=== PATIENT | male | born 1985 | race Caucasian/White ===

== ENCOUNTER 2019-05-24 12:35 | Emergency (ER) | payer BC, SELFPAY ==
--- NOTE | ~2019-05-24 | XR_ITS ---
EXAMINATION: XR chest 1V portable DATE: 05/24/2019 12:58 INDICATION: Acute midsternal chest pain radiating to left shoulder. TECHNIQUE: A single frontal view of the chest was obtained. COMPARISON: CT abdomen 11/23/2017 FINDINGS: The chest demonstrates clear lungs without pneumonia, pleural effusion, or pneumothorax. Th e heart size is normal. IMPRESSION: 1. No acute cardiopulmonary disease. Reviewed, dictated and finalized at location A.
--- NOTE | 2019-05-24 12:36 | ECG_ITS ---
Measurements Intervals [place] Rate: 186 P: [place]: 0 QRS: 63 QRSD: 88 T: -53 QT: 237 QTc: 417 Interpretive Statements SUPRAVENTRICULAR TACHYCARDIA ST-T WAVE ABNORMALITY IN ANTEROLAT/INF LEADS- CONSIDER ISCHEMIA OR RATE RELATED ABNORMAL ECG Electronically Signed On 05-24-2019 13:16:21 CDT by Luis Carlos Lopez D.O.
[2019-05-24 12:40] VITALS: BP 113/90; PULSE 196; RESP 18; O2SAT 100
[2019-05-24] MEDS: SODIUM CHLORIDE 0.9% IV 1,000 ML 999 ML (12:40)
--- NOTE | 2019-05-24 12:41 | ED.ARRPALP ---
HPI - Arrhythmia/Palpitations General Chief Complaint: Arrhythmia/Palpitations Stated Complaint: fast heartbeat Time Seen by Provider: 05/24/19 12:39 Source: patient and RN notes reviewed Mode of arrival: ambulatory Limitations: no limitations History of Present Illness HPI narrative: Pt is a 33 y/o male who presents to the ED with c/o heart palpitations starting roughly 30 minutes ago. He notes that he has a Hx of similar episodes, stating that he has an episode roughly every several months. Pt notes that his heart began racing while he was cleaning out his garage 30 minutes ago. He currently reports chest tightness, but denies any fever, chills, or other symptoms. Pt states that this is the longest episode of palpitations he has ever had. He denies ever being diagnosed with SVT. complaint: heart racing Onset (ago): minute(s) (30) Duration: constant Associated symptoms: other (chest tightness) Related Data Home Medications Medication Instructions Recorded Confirmed No Home Medications 05/24/19 05/24/19 Allergies Allergy/AdvReac Type Severity Reaction Status Date / Time No Known Allergies Allergy Unknown Unverified 06/30/15 08:06 Review of Systems Review of Systems: All systems reviewed & are unremarkable except as noted in HPI and below Constitutional: Constitutional: Denies chills and Denies fever(s) Cardiovascular: Cardiovascular: Reports palpitations and Reports other (chest tightness) [facility] Past Medical History Medical History Asthma GI bleed Strep throat Surgical History Surgical History History of placement of ear tubes Family History Family History (Updated 02/10/17 @ 15:25 by DOCTOR UNKNOWN) Mother Family history of migraine headaches Social History Social History Smoking status: Never smoker Second hand tobacco smoke exposure: No Alcohol intake: current Exam Narrative: Exam Narrative: APPEARANCE: No acute distress, nontoxic, resting in bed EYES: EOMI HEENT: Normocephalic, atraumatic, OMM RESPIRATORY: No respiratory distress Clear to auscultation bilaterally with no rhonchi wheezing or rales. CARDIOVASCULAR: Tachycardic and regular m without murmurs rubs or gallops. ABDOMINAL: Soft, nontender, nondistended, no rebound or guarding MUSCULOSKELETAl: Moves all extremities. No clubbing, cyanosis or edema. NEURO: Awake and alert. Following commands, speech normal, no focal deficits SKIN:: Warm, dry. No rashes lesions or abrasions PSYCHIATRIC: Normal affect/mood, Course Course Emergency Course: Patient is remained in sinus rhythm since conversion with adenosine Discussed with patient results of workup and diagnosis. Discussed need for follow-up with primary care, proper use of medication, and reasons to return to the emergency department. Patient understands and agrees to current treatment plan Consultations Consultation #1: Discussed case with CONCRETE ANALYST to community manager, Joycelyn Alexandre. He needs to follow-up with his PCP. Date: 05/24/19 Time: 13:49 Consultation #2: Discussed case with pt's PCP, Dr. Max. Wants to put the pt on Cardizem CD 120 mg daily. Please plan for discharge and follow-up as an outpatient Date: 05/24/19 Time: 13:56 Vital Signs Vital signs: Vital Signs Pulse Rate 196 H 05/24/19 12:40 Respiratory Rate 18 05/24/19 12:40 Blood Pressure 113/90 05/24/19 12:40 Pulse Oximetry 100 05/24/19 12:40 Pulse Rate 196 H 05/24/19 12:40 Respiratory Rate 18 05/24/19 12:40 Blood Pressure 113/90 05/24/19 12:40 Pulse Oximetry 100 05/24/19 12:40 Procedures Other Procedure Procedure 1: Other Procedure: Chemical cardioversion: Patient was placed on software consultant IV and right AC crash cart present in room. The patient was given 6 mg of adenosine with conversion from SVT into sinus rhythm. Patient flynn
[2019-05-24] MEDS: ADENOSINE IV SOLN 6 MG/2 ML VIAL (12:44)
--- NOTE | 2019-05-24 12:46 | ECG_ITS ---
Measurements Intervals [place] Rate: 97 P: 66 HI: 159 QRS: 43 QRSD: 88 T: 44 QT: 315 QTc: 402 Interpretive Statements SINUS RHYTHM BORDERLINE ST ABNORMALITY- ANTEROLAT/INF LEADS BASELINE WANDER- III BORDERLINE ECG Electronically Signed On 05-24-2019 13:16:59 CDT by Luis Carlos PERDOMO
[2019-05-24 13:02] LABS: Basophils Absolute Auto 0.1 K/mm3 (0.0-0.1); Basophils Percent Auto 0.8 % (0.2-1.2); Eosinophils Absolute Auto 0.4 K/mm3 (0-0.3); Eosinophils Percent Auto 4.8 % (0-4.4); Hemoglobin 16.6 g/dL (14.0-18.0); Immature Granulocyte Absolute 0.03 K/mm3 (0.00-0.031); Immature Granulocyte Percent A 0.4 % (0-0.5); Lymphocytes Absolute Auto 3.59 K/mm3 (0.9-3.2); Mean Corpuscular HGB Conc 35.3 g/dl (32-36); Mean Corpuscular Hemoglobin 31.7 pg (26-34); Mean Corpuscular Volume 89.7 fl (80-100); Mean Platelet Volume 9.3 fl (7.4-10.4); Monocytes Absolute Auto 0.9 K/mm3 (0.1-0.6); Monocytes Percent Auto 9.9 % (2.6-8.5); Neutrophils Absolute Auto 3.6 K/mm3 (1.3-6.7); Neutrophils Percent Auto 42.1 % (45.5-73.1); Platelet Count Result 286 k/mm3 (150-375); Red Blood Count 5.24 M/mm3 (4.6-6.20); Red Cell Distribution Width 11.9 % (11.5-14.5); White Blood Count 8.6 K/mm3 (4.5-10.0)
[2019-05-24 13:14] LABS: INR 0.9; Prothrombin Time 12.2 Seconds (11.1-14.7)
[2019-05-24 13:15] LABS: Partial Thromboplastin Time 27.4 SECONDS (22.3-36.8)
[2019-05-24 13:18] LABS: Blood Urea Nitrogen 13 mg/dL (9-20); Calcium 9.6 mg/dL (8.4-10.2); Carbon Dioxide 27 mmol/L (22-30); Chloride 99 mmol/L (98-107); Estimated CRCL calculation 95 ml/min; Estimated Glomerular Filt Rate > 60; Glucose 129 mg/dL (75-110); Magnesium 1.7 mg/dL (1.6-2.3); Potassium 3.4 mmol/L (3.4-5.0); Sodium 137 mmol/L (137-145)
[2019-05-24 13:34] LABS: Troponin I < 0.012 ng/mL (0.000-0.034)
[2019-05-24 14:21] VITALS: BP 150/97; PULSE 85; RESP 13; O2SAT 100
== END 2019-05-24 14:45 | disposition home or self-care (01) ==
PROVIDERS: Emergency Provider Emergency Medicine; PCP Internal Medicine
DX: I47.1 Supraventricular tachycardia (principal); J45.909 Unspecified asthma, uncomplicated
CPT/HCPCS: 36415; 71045; 80048; 83735; 84484; 85025; 85610; 85730; 92960; 93005; 96361; 96374; 99284; A9270; J0153; J7030

== ENCOUNTER 2019-06-14 12:38 | Outpatient (CLI) | payer BC, SELFPAY ==
--- NOTE | 2019-06-14 | ECHO_ITS ---
Patient Info Name: Oswaldo Baron Age: 34 years : 1985 Gender: Male Ht: 68 in Wt: 148 lbs BSA: 1.80 m2 HR: 55 bpm BP: 139 / 86 mmHg Technical Quality: Good Exam Date: 06/14/2019 1:29 PM Exam Location: [facility] Exam Room: echo lab Patient Status: Outpatient Admit Date: 06/14/2019 Staff Ordering Physician: Luis Carlos Lopez DO Security Nurse: Debi Saha RDCS Attending Provider: Luis Carlos Lopez DO Referring Physician: John MENDEZ; Exam Type: CA echo doppler color flow Study Info Indications - svt Complete two-dimensional, color flow and Doppler transthoracic echocardiogram is performed. Summary 1. Left ventricular chamber dimension is normal. 2. Left ventricular systolic function is normal, estimated at 60-65%. 3. The left ventricular diastolic function is normal. 4. E/e' 6 is not elevated. 5. There is trace tricuspid valve regurgitation. 6. No pulmonary hypertension, estimated pulmonary arterial systolic pressure is 25 mmHg. 7. There is trace pulmonic regurgitation. Left Ventricle E/e' 6 is not elevated. Left ventricular chamber dimension is normal. Left ventricular systolic function is normal, estimated at 60-65%. The left ventricular diastolic function is normal. Right Ventricle Right ventricular chamber dimension is normal. Right ventricular systolic function is normal. Left Atria Left atrial chamber dimension is normal. Right Atria Right atrial chamber dimension is normal. Aortic Valve The aortic valve is trileaflet. There is no aortic valve stenosis. There is no aortic valve regurgitation. Pulmonic Valve There is trace pulmonic regurgitation. Mitral Valve There is no mitral valve stenosis. There is no mitral valve regurgitation. Tricuspid Valve There is trace tricuspid valve regurgitation. No pulmonary hypertension, estimated pulmonary arterial systolic pressure is 25 mmHg. Pericardium/Pleural There is no pericardial effusion. Inferior Vena Cava Normal inferior vena cava with >50% collapse upon inspiration consistent with normal right atrial pressure, 5 mmHg. Aorta The aortic root size at the sinus of Valsalva is normal. Left Ventricular Outflow Tract Name Value Normal LVOT 2D LVOT Diameter 2.0 cm LVOT Doppler LVOT Peak Gradient 5 mmHg LVOT Mean Gradient 3 mmHg LVOT VTI 21 cm LVOT VTI/AV VTI Ratio 0.9 LVOT Stroke Volume 68 ml LVOT CO 13.9 l/min LVOT CI 7.8 l/min/m2 Pulmonic Valve Name Value Normal PV Doppler PV Peak Gradient 3 mmHg PV Regurgitation Doppler P
== END 2019-06-14 12:39 | disposition home or self-care (01) ==
PROVIDERS: PCP Internal Medicine; Visit Provider Internal Medicine Cardiovascular Disease
DX: I47.1 Supraventricular tachycardia (principal)
CPT/HCPCS: 93306

== ENCOUNTER 2019-07-18 14:50 | Outpatient (CLI) | payer BC, SELFPAY ==
--- NOTE | ~2019-07-18 | XR_ITS ---
EXAMINATION: XR hand RT 2V EXAM DATE: 07/18/2019 15:06 INDICATION: Pain in right 3rd finger, no known recent injury. TECHNIQUE: Frontal and lateral projections of the right hand. There is no prior study for compariso n. FINDINGS: There is a sliver-like metallic foreign body in the tip of the right 2nd finger distal to the tuft, likely chronic. The 3rd finger is unremarkable. There are no bony erosions identified. The joint spaces are uniform. IMPRESSION: Tiny foreign body in tip of right index finger. Unremarkable 3rd digit. Reviewed, dictated and finalized at location A. IMPRESSION: Tiny foreign body in tip of right index finger. Unremarkable 3rd di git.
== END 2019-07-18 14:51 | disposition home or self-care (01) ==
LOC: ANHIMG 14:51
PROVIDERS: PCP Internal Medicine; Visit Provider Physician Assistant
DX: M79.644 Pain in right finger(s) (principal)
CPT/HCPCS: 73120

== ENCOUNTER 2020-12-28 08:23 | Emergency (ER) | payer BC, SELFPAY ==
[2020-12-28 08:32] VITALS: BP 124/91; PULSE 50; RESP 16; TEMP 36.1; O2SAT 100
--- NOTE | 2020-12-28 09:01 | ED.NECK ---
HPI - Neck Pain/Injury General Chief Complaint: Neck Pain/Injury Stated Complaint: Neck Pain Time Seen by Provider: 12/28/20 09:00 Source: patient and RN notes reviewed Mode of arrival: ambulatory Limitations: no limitations History of Present Illness HPI Narrative: Oswaldo is a 35-year-old male [facility] Patient states he woke up yesterday with his neck being tight. Patient states he has pain when he leans to the right left and actually left work yesterday over it. Patient states increased pain when he tries to move. Woke up this morning with the same pain on the left side with hurting when he moves it to the right. Patient has taken Advil at home. Patient has not used ice or heat ; patient states pain is a 7/10. MD complaint: neck pain Related Data Allergies Allergy/AdvReac Type Severity Reaction Status Date / Time No Known Allergies Allergy Unknown Verified 11/27/20 10:13 Review of Systems Review of Systems: CONSTITUTIONAL: Denies body aches, fever, chills, or sweats. EYES: Denies visual changes, redness, or discharge. ENT: Denies rhinorrhea, congestion, sore throat, or otalgia. CARDIOVASCULAR: Denies chest pain, palpitations, or edema. RESPIRATORY: Denies cough or dyspnea. GASTROINTESTINAL: Denies abdominal pain, nausea, vomiting, or diarrhea. GENITOURINARY: Denies dysuria or hematuria. SKIN: Denies rash, itching, or wounds. MUSCULOSKELETAL: Denies back pain, joint pain, or myalgia.+ left neck pain NEUROLOGIC: Denies headache, numbness, tingling, or weakness. PSYCH: Denies depression or anxiety. All systems reviewed & are unremarkable except as noted in HPI and below [facility] Past Medical History Medical History (Updated 12/28/20 @ 09:07 by KIRK Hcek) Asthma GI bleed Strep throat Surgical History Surgical History History of placement of ear tubes Family History Family History Mother Family history of migraine headaches Social History Social History Smoking status: Never smoker Second hand tobacco smoke exposure: No Alcohol intake: current Comments At time of signature, I have reviewed and agree with nursing past medical, surgical, social and family history unless otherwise noted. Please see nursing chart for further information. There is no relevant family history pertinent to the presenting complaint Exam Narrative: GENERAL: Well-appearing, well-nourished, and in no acute distress. HEAD: Normocephalic, atraumatic. EYES: EOMI. No redness or drainage. Conjunctivae normal. ENT: Mucous membranes pink and moist. Nares clear. No rhinorrhea. NECK: Normal AROM. Supple. CHEST: No respiratory distress. . MUSCULOSKELETAL: No bony tenderness; EXTREMITIES: Normal range of motion. No edema; Increased pain with movement to left, trapezius muscle tight and pain with palpation, SKIN: Warm, dry, no rash. Capillary refill normal. Normal skin turgor. NEURO: No focal deficits. Alert and oriented x3. Gait steady. PSYCH: Normal affect. No signs of depression or anxiety. Course Vital Signs Vital signs: Vital Signs Temperature 36.1 C L 12/28/20 08:32 Pulse Rate 50 L 12/28/20 08:32 Respiratory Rate 16 12/28/20 08:32 Blood Pressure 124/91 H 12/28/20 08:32 Pulse Oximetry 100 12/28/20 08:32 Temperature 36.1 C L 12/28/20 08:32 Pulse Rate 50 L 12/28/20 08:32 Respiratory Rate 16 12/28/20 08:32 Blood Pressure 124/91 H 12/28/20 08:32 Pulse Oximetry 100 12/28/20 08:32 Reviewed. Pt has been instructed to follow up with his PCP regarding his elevated blood pressure today. MDM - Neck Pain/Injury MDM Narrative Medical decision making narrative: Patient woke up with left-sided neck pain. Patient's trapezius muscle is extremely tight. Patient has pain with palpation on
== END 2020-12-28 09:11 | disposition home or self-care (01) ==
PROVIDERS: Emergency Provider Nurse Practitioner Family; PCP Internal Medicine
DX: S16.1XXA Strain of muscle, fascia and tendon at neck level, initial encounter (principal); X58.XXXA Exposure to other specified factors, initial encounter; J45.909 Unspecified asthma, uncomplicated
CPT/HCPCS: 99213; G0463

== ENCOUNTER 2021-05-19 07:27 | Outpatient (CLI) | payer BC, SELFPAY ==
--- NOTE | 2021-05-20 17:34 | WPDHOMESLEEP ---
Sleep Study - Home Unattended Date of Study: 05/19/21 Ordering Provider: Luis Carlos Lopez DO Interpreting Provider: Maryann Stovall DO Home Sleep Study Type: Apnea Link Air Height: 1.73 m Weight: 65.771 kg Body Mass Index: 22.0 Neck Circumference (inches): 14.5 [place]: 6 Reason for Sleep Study Supraventricular tachycardia Sleep History Patient is a 35-year-old male with asthma and supraventricular tachycardia had a home sleep test ordered his or first assist registered nurse. The patient rarely awakens from sleep short of breath. He rarely awakens at night with heartburn, belching or cough. He constantly snores loud enough that others complain. He frequently has trouble sleeping when he has a cold. He rarely wakes up gasping for air throughout the night. He frequently has breathing problems at night observed by himself or others. He occasionally sweats excessively at night. He frequently has heart palpitations or irregular heartbeats during the night. He occasionally falls asleep during the day but never while driving. He occasionally has trouble at work due to sleepiness. He denies sleep paralysis and cataplexy. He rarely experiences vivid dreamlike scenes upon awakening or falling asleep. He rarely has nightmares. He rarely has thoughts racing through his mind. He rarely feels or depressed. He occasionally has anxiety. He rarely has Bolesta denture. He occasionally notices parts of his body jerk. Rarely kicks during the night. He rarely experiences crawling and aching feelings in his legs but occasionally has leg pain during the night. he denies grinding his teeth during sleep but will occasionally awaken with morning jaw pain. He rarely has bothered by pain during the day and rarely awakened by pain during the night. He occasionally wakes up feeling stiff in the morning. He rarely awakens with sore achy muscles. He frequently wakes up with pain in the neck, spine or other joints. He goes to bed at 9:00 p.m. on weekdays and 11:00 p.m. on weekends. It takes him 15-30 minutes to fall asleep. He wakes up 4-5 times throughout the night. When he awakens, he will use the restroom, drink water and rest the sleep position. He will stay awake for 10 minutes. He wakes up at 5:00 a.m. on weekdays and 6:00 a.m. weekends. He typically gets 6-7 hours of sleep per night. He will stay in bed for 15-30 minutes after waking up morning. He currently lives with his and 5-year-old son. He denies consuming any caffeinated beverages within 2 hours of bedtime. He does not engage in physical exercise before bedtime. He will watch television before falling asleep. He does not take naps in the afternoon or the evening. He does not consume any caffeinated beverages throughout the day. He denies tobacco, alcohol recreational drug use. [facility] Past Medical History Medical History Asthma GI bleed PSVT (paroxysmal supraventricular tachycardia) Strep throat Surgical History Surgical History History of placement of ear tubes Family History Family History Mother Family history of migraine headaches Social History Social History Smoking status: Never smoker Second hand tobacco smoke exposure: No Alcohol intake: current Medications Home Medications Medication Instructions Recorded Confirmed Type diltiazem HCl 360 mg See Rx Instructions .ROUTE 04/16/20 03/26/21 Rx capsule,extended release 24 hr .COMPLEX #90 cap lorazepam 0.5 mg tablet 0.5 mg PO BID PRN #60 tablet 11/27/20 03/26/21 Rx cyclobenzaprine 10 mg PO TID PRN #14 tablet 12/28/20 03/26/21 Rx ibuprofen 800 mg PO TID 7 Days #21 tablet 12/28/20 03/26/21 Rx prednisone 50 mg PO DAILY 5 Days #5 tablet 12/28/20 03/26/21 Rx Sleep Procedure This test was
[2021-05-20 17:41] VITALS: BMI 22.0
== END 2021-05-20 10:36 | disposition home or self-care (01) ==
LOC: ANHCSM 07:30
PROVIDERS: PCP Internal Medicine; Visit Provider Internal Medicine Cardiovascular Disease
DX: G47.33 Obstructive sleep apnea (adult) (pediatric) (principal)
CPT/HCPCS: 95806

== ENCOUNTER 2022-01-21 11:40 | Outpatient (CLI) | payer BC, SELFPAY ==
[2022-01-21 12:24] LABS: Strep Group A RT-PCR NOT DETECTED (Negative)
== END 2022-01-21 11:41 | disposition home or self-care (01) ==
LOC: ANHLAB 11:42
PROVIDERS: PCP Internal Medicine; Visit Provider Physician Assistant
DX: J02.9 Acute pharyngitis, unspecified (principal)
CPT/HCPCS: 87651

== ENCOUNTER 2022-06-29 12:44 | Outpatient (CLI) | payer BC, SELFPAY ==
[2022-06-29 13:40] LABS: Strep Group A RT-PCR DETECTED (Negative)
== END 2022-06-29 12:45 | disposition home or self-care (01) ==
LOC: ANHLAB 12:47
PROVIDERS: PCP Internal Medicine; Visit Provider Physician Assistant
DX: J02.9 Acute pharyngitis, unspecified (principal)
CPT/HCPCS: 87070; 87147; 87651

== ENCOUNTER 2022-08-03 10:13 | Emergency (ER) | payer BC, SELFPAY ==
[2022-08-03 10:31] VITALS: BP 153/99; PULSE 71; RESP 16; TEMP 36.6; O2SAT 99
--- NOTE | 2022-08-03 10:59 | ED.SKABFB ---
HPI - Skin/Abscess/Foreign Bdy General Chief complaint: Skin/Abscess/Foreign Body Stated complaint: Rash On Body Time Seen by Provider: 08/03/22 10:59 Source: patient Mode of arrival: ambulatory Limitations: no limitations History of Present Illness HPI narrative: 37-year-old male presented for complaint of diffuse rash over entire body for about 3 weeks. States it started on his ribs and spread from head to toe. Endorses itching is worse on the trunk. Denies lip, tongue, or throat swelling, shortness of breath or wheezing, n/v/d/f/c. Denies changes to soap, detergent, lotion, or any other exposures. No one else in the house or any contacts with similar symptoms. Related Data Allergies Allergy/AdvReac Type Severity Reaction Status Date / Time No Known Allergies Allergy Unknown Verified 04/16/22 15:14 Review of Systems Review of Systems: CONSTITUTIONAL: Denies body aches, fever, chills, or sweats. EYES: Denies visual changes, redness, or discharge. ENT: Denies rhinorrhea, congestion CARDIOVASCULAR: Denies chest pain, palpitations, or edema. RESPIRATORY: Denies cough or dyspnea. GASTROINTESTINAL: Denies abdominal pain, nausea, vomiting, or diarrhea. SKIN: Per HPI MUSCULOSKELETAL: Denies back pain, joint pain, or myalgia. NEUROLOGIC: Denies headache, numbness, tingling, or weakness. COUNT INCLUDES THE [facility] Past Medical History Medical History Asthma GI bleed PSVT (paroxysmal supraventricular tachycardia) Strep throat Surgical History Surgical History History of placement of ear tubes Family History Family History Mother Family history of migraine headaches Social History Social History Smoking status: Never smoker Second hand tobacco smoke exposure: No Alcohol intake: current Comments At time of signature, I have reviewed and agree with nursing past medical, surgical, social and family history unless otherwise noted. Please see nursing chart for further information. There is no relevant family history pertinent to the presenting complaint Exam Narrative: GENERAL: Well-appearing HEAD: Normocephalic, atraumatic. EYES: conjunctivae clear, and EOMI. ENT: Mucous membranes moist. Oropharynx without edema, erythema or lesions. NECK: Supple. No lymphadenopathy CHEST: Clear to auscultation. HEART: Regular rate and rhythm. SKIN: Warm, dry. Diffuse bright erythematous, circular, scaly rash lesions spreading from scalp to feet. Lesions <0.5cm diameter appear to be similar stages of healing. Extremely concentrated on trunk, sparing face, dissipates towards distal extremities. NEURO: Alert and oriented x3. Course Course Emergency Course: Patient is aware of diagnosis, understands and agrees to treatment plan. Anticipatory guidance given. Patient agrees to follow-up as directed and is aware of reasons to seek care at the emergency department. Portions of this record may have been created with voice recognition software Level of Care: Express Care Visit Vital Signs Vital signs: Vital Signs Temperature 98 F 08/03/22 10:31 Pulse Rate 71 08/03/22 10:31 Respiratory Rate 16 08/03/22 10:31 Blood Pressure 153/99 H 08/03/22 10:31 Pulse Oximetry 99 08/03/22 10:31 Oxygen Delivery Room Air 08/03/22 10:31 Temperature 98 F 08/03/22 10:31 Pulse Rate 71 08/03/22 10:31 Respiratory Rate 16 08/03/22 10:31 Blood Pressure 153/99 H 08/03/22 10:31 Pulse Oximetry 99 08/03/22 10:31 Oxygen Delivery Room Air 08/03/22 10:31 Reviewed MDM - Skin/Abscess/Foreign Bdy MDM Narrative Medical decision making narrative: Discussed physical exam findings. Advised supportive measures and signs/symptoms to go to the ER. Pt is appropriate for outpt treatment and f/u. I
== END 2022-08-03 11:15 | disposition home or self-care (01) ==
PROVIDERS: Emergency Provider Nurse Practitioner Family; PCP Physician Assistant
DX: L30.9 Dermatitis, unspecified (principal); J45.909 Unspecified asthma, uncomplicated
CPT/HCPCS: 99213; G0463

== ENCOUNTER 2023-06-03 19:43 | Emergency (ER) | payer BC, SELFPAY ==
--- NOTE | ~2023-06-03 | XR_ITS ---
EXAMINATION: XR chest 1V portable DATE: 06/03/2023 20:12 INDICATION: Chest pain. TECHNIQUE: A single frontal view of the chest was obtained. COMPARISON: None. FINDINGS: There is no pneumonia, pleural effusion, or pneumothorax. The heart size is normal. IMPRESSION: 1. No acute cardiopulmonary disease. Reviewed, dictated and finalized at location E.
[2023-06-03 19:45] VITALS: BP 147/105; PULSE 181; RESP 24; TEMP 36.1; O2SAT 96
--- NOTE | 2023-06-03 19:45 | ECG_ITS ---
SEE SCANNED COPY FOR CONFIRMED REPORT MTDD
[2023-06-03 19:54] VITALS: BP 150/104; PULSE 176; RESP 16; O2SAT 96
--- NOTE | 2023-06-03 19:55 | ED.ARRPALP ---
HPI - Arrhythmia/Palpitations General Chief Complaint: Arrhythmia/Palpitations Stated Complaint: svt/ palpitations Time Seen by Provider: 06/03/23 19:54 History of Present Illness HPI narrative: 38 years old white male drove himself to the emergency room, complaining of sudden onset of fast heart beat with dizziness and lightheadedness started 30 minutes prior to arrival to the emergency room while standing in his backyard at rest. History of similar symptoms, 2 years ago, currently on diltiazem. EKG on arrival showed SVT at 179 beats per minute, when I went see the patient in the room converted to normal sinus rhythm Post IV access And is asymptomatic. Related Data Allergies Allergy/AdvReac Type Severity Reaction Status Date / Time No Known Allergies Allergy Unknown Verified 11/25/22 08:28 Review of Systems Review of Systems: All systems reviewed & are unremarkable except as noted in HPI and below PMFSH Past Medical History Medical History Asthma GI bleed PSVT (paroxysmal supraventricular tachycardia) Strep throat Surgical History Surgical History History of placement of ear tubes Family History Family History Mother Family history of migraine headaches Social History Social History Smoking status: Never smoker Second hand tobacco smoke exposure: No Alcohol intake: current Substance use: unknown Current Housing: Decline to Answer Concerned About Future Housing: Decline to Answer Difficulty Paying Gas/Electric Bills: Decline to Answer Difficulty Paying for Meds: Decline to Answer Currently Unemployed: Decline to Answer Education: Decline to Answer Difficulty w/ Childcare or Family Care: Decline to Answer Exam Narrative: General appearance: Well-developed, well-nourished Skin: Normal color Head: Normocephalic, nontraumatic Eyes: Clear conjunctiva ENT: Oropharynx normal, ears normal, nose normal Neck: Supple, nontender Chest and respiratory: Airway patent, no respiratory distress, no accessory muscle use Heart: Regular rate/rhythm Abdomen: Soft, nontender, no organomegaly, quiet bowel sounds Vascular: Normal peripheral pulses, normal capillary refill. Musculoskeletal: Normal range of motion, nontender back Neurologic: Alert and oriented ?3, TABLEAU DEVELOPER is normal as tested, no gross motor deficit Course Vital Signs Vital signs: Vital Signs Temperature 36.1 C L 06/03/23 19:45 Pulse Rate 181 H 06/03/23 19:45 Respiratory Rate 24 H 06/03/23 19:45 Blood Pressure 147/105 H 06/03/23 19:45 Pulse Oximetry 96 06/03/23 19:45 Oxygen Delivery Room Air 06/03/23 19:45 Temperature 36.1 C L 06/03/23 19:45 Pulse Rate 92 06/03/23 19:56 Respiratory Rate 15 06/03/23 19:56 Blood Pressure 148/102 H 06/03/23 19:56 Pulse Oximetry 97 06/03/23 19:56 Oxygen Delivery Room Air 06/03/23 19:54 MDM - Arrhythmia/Palpitations MDM Narrative Medical decision making narrative: patient presents to the ED with SVT. Converted to normal sinus rhythm after IV access. Currently patient is asymptomatic. Differential diagnosis, noncompliance with medication, stress related. Blood workup showed no significant abnormality Chest x-ray showed no acute cardiopulmonary Repeated EKG showed normal sinus rhythm at 89 beats per minute. In the ED patient received 10 mg of Cardizem IV, blood pressure improved, heart rate in the 80s. Patient has been asymptomatic since arrival to the ED until the time of
[2023-06-03 19:56] VITALS: BP 148/102; PULSE 92; RESP 15; O2SAT 97
--- NOTE | 2023-06-03 19:56 | ECG_ITS ---
SEE SCANNED COPY FOR CONFIRMED REPORT MTDD
--- NOTE | 2023-06-03 20:02 | PC.NURSE ---
EDP Dr. Fernandez made aware of patient in SVT. VORB for adenosine. When entered room, patient was already converted to NSR. Adenosine not needed. Returned to [facility].
[2023-06-03 20:03] LABS: Basophils Absolute Auto 0.1 K/mm3 (0.0-0.1); Basophils Percent Auto 0.6 % (0.2-1.2); Eosinophils Absolute Auto 0.7 K/mm3 (0-0.3); Eosinophils Percent Auto 7.4 % (0-4.4); Hematocrit 46.6 % (42.0-52.0); Hemoglobin 16.9 g/dL (14.0-18.0); Immature Granulocyte Absolute 0.04 K/mm3 (0.00-0.031); Immature Granulocyte Percent A 0.4 % (0-0.5); Lymphocytes Percent Auto 35.9 % (18.3-44.2); Mean Corpuscular HGB Conc 36.3 g/dl (32-36); Mean Corpuscular Hemoglobin 32.4 pg (26-34); Mean Corpuscular Volume 89.3 fl (80-100); Mean Platelet Volume 9.3 fl (7.4-10.4); Monocytes Absolute Auto 1.1 K/mm3 (0.1-0.6); Monocytes Percent Auto 10.7 % (2.6-8.5); Neutrophils Absolute Auto 4.5 K/mm3 (1.3-6.7); Platelet Count Result 292 k/mm3 (150-375); Red Blood Count 5.22 M/mm3 (4.6-6.20); Red Cell Distribution Width 12.1 % (11.5-14.5)
[2023-06-03] MEDS: dilTIAZem HCl INJ 25 MG/5 ML VIAL 10 MG IV PUSH (20:11)
[2023-06-03 20:13] LABS: Alanine Aminotransferase 52 U/L (6-50); Albumin Level 4.8 g/dL (3.5-5.1); Alkaline Phosphatase 121 U/L (38-126); Anion Gap 15 mmol/L (4-12); Aspartate Amino Transferase 47 U/L (17-59); Bilirubin,Total 0.7 mg/dL (0.2-1.3); Blood Urea Nitrogen 20 mg/dL (9-20); Calcium 9.9 mg/dL (8.4-10.2); Carbon Dioxide 20 mmol/L (22-30); Chloride 106 mmol/L (98-107); Estimated CRCL calculation 77 ml/min; Estimated Glomerular Filt Rate > 60; Glucose 128 mg/dL (65-110); Lipase 123 U/L (23-300); Potassium 3.3 mmol/L (3.4-5.0); Sodium 141 mmol/L (137-145)
[2023-06-03 20:24] LABS: INR 0.9; Partial Thromboplastin Time 26.8 Seconds (22.3-36.8); Prothrombin Time 12.5 Seconds (11.1-14.7); Troponin I < 0.012 ng/mL (0.000-0.034)
[2023-06-03 20:50] VITALS: BP 128/89; PULSE 83; RESP 13; O2SAT 96
[2023-06-03 21:42] VITALS: BP 126/84; PULSE 84; RESP 18; O2SAT 99
== END 2023-06-03 21:43 | disposition home or self-care (01) ==
PROVIDERS: Emergency Medicine; Emergency Provider Emergency Medicine; PCP Physician Assistant
DX: I47.10 Supraventricular tachycardia, unspecified (principal); J45.909 Unspecified asthma, uncomplicated
CPT/HCPCS: 36415; 71045; 80053; 83690; 84484; 85025; 85610; 85730; 93005; 96374; 99284; J0153

== ENCOUNTER 2023-08-14 09:47 | Emergency (ER) | payer BC, SELFPAY ==
[2023-08-14 09:57] VITALS: BP 141/86; PULSE 63; RESP 16; TEMP 37.3; O2SAT 99
[2023-08-14 09:59] VITALS: BP 141/86; PULSE 63; RESP 16; TEMP 37.3; O2SAT 99
--- NOTE | 2023-08-14 10:08 | ED.GENADULT ---
HPI - General Adult General Chief complaint: Extremity Injury, Upper Stated complaint: right arm pain, left earache Time Seen by Provider: 08/14/23 10:08 History of Present Illness HPI narrative: Patient presents today with 2 separate complaints. He complains of right elbow pain that has been present for at least 1 month. He states this is getting much worse. He denies any injury or trauma. He is right-hand dominant, operates heavy equipment, golfs, and plays football with his son. He reports all of these activities have been aggravating his pain. He has not taken anything for the symptoms Patient complains of left ear pain for 1 day. He reports pain is worse today than it was yesterday. He denies any injury or trauma. He denies any fever, chills, sweats. He voices no other concerns or complaints at this time Related Data Home Medications Medication Instructions Recorded Confirmed diltiazem HCl 360 mg 360 mg PO DAILY 08/14/23 08/14/23 capsule,extended release 24 hr Allergies Allergy/AdvReac Type Severity Reaction Status Date / Time No Known Allergies Allergy Unknown Verified 08/14/23 09:56 Review of Systems Constitutional: Constitutional: Reports as per HPI ENT: Reports as per HPI and Reports otalgia (left) Cardiovascular: Cardiovascular: Reports as per HPI and Reports no additional cardiovascular complaints Respiratory: Respiratory: Reports as per HPI and Reports no additional respiratory complaints Musculoskeletal: Musculoskeletal: Reports as per HPI Comments: Left elbow pain PMFSH Past Medical History Medical History Asthma GI bleed PSVT (paroxysmal supraventricular tachycardia) Strep throat Surgical History Surgical History History of placement of ear tubes Family History Family History Mother Family history of migraine headaches Social History Social History Smoking status: Never smoker Second hand tobacco smoke exposure: No Alcohol intake: current Substance use: unknown Do You Feel Safe in your Home?: Yes Lack of Transportation: No Lack of Food: Never True Current Housing: I Have Housing Concerned About Future Housing: No Difficulty Paying Gas/Electric Bills: No Difficulty Paying for Meds: No Currently Unemployed: No Education: High School Diploma/GED Difficulty w/ Childcare or Family Care: No Exam Const: General: cooperative, healthy appearing and comfortable HENMT: Head: normocephalic and atraumatic Ears: TM normal on the left and TM abnormal bulging, erythematous and with loss of landmarks Mouth: Yes Normal oral and palatal mucosa present Neck: Neck: normal visual inspection and full ROM Resp: Auscultation: clear to auscultation bilaterally, no crackles, no rales and no wheezes Cardio: Palpation: normal PMI Rate: regular rate Extrem: Right upper extremity: full ROM and elbow/forearm (Tenderness to right lateral elbow, trace amount of fluid. C/W bursitis) Psych: Appearance: grossly normal and well kempt Course Course Level of Care: Express Care Visit Vital Signs Vital signs: Vital Signs Temperature 99.1 F 08/14/23 09:57 Pulse Rate 63 08/14/23 09:57 Respiratory Rate 16 08/14/23 09:57 Blood Pressure 141/86 H 08/14/23 09:57 Pulse Oximetry 99 08/14/23 09:57 Oxygen Delivery Room Air 08/14/23 09:57 Temperature 99.1 F 08/14/23 09:59 Pulse Rate 63 08/14/23 09:59 Respiratory Rate 16 08/14/23 09:59 Blood Pressure 141/86 H 08/14/23 09:59 Pulse Oximetry 99 08/14/23 09:59 Oxygen Delivery Room Air 08/14/23 09:59 Medical Decision Making MDM Narrative Medical decision making narrative: Patient is nontoxic appearing, stable for discharge. Exam is consistent with ten
== END 2023-08-14 10:25 | disposition home or self-care (01) ==
PROVIDERS: Emergency Provider Nurse Practitioner Family
DX: M77.11 Lateral epicondylitis, right elbow (principal); H66.92 Otitis media, unspecified, left ear; J45.909 Unspecified asthma, uncomplicated
CPT/HCPCS: 99213; G0463

== ENCOUNTER 2024-08-17 22:17 | Emergency (ER) | payer BC, SELFPAY ==
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
--- OUTSIDE RECORDS SUMMARY | 2024-08-17 22:18 | XMS_ITS | Clinical Summary ---
Author Organization [facility] Address [address] [place] [id number] Care Team Providers Care Regional Tanker Truck Driver Name Role Phone Gautam Fernandez MD Primary Care Provider Bennie kimball Social History Tobacco Use Types Packs/Day Years Used Date Smoking Tobacco: Never Assessed Sex and Gender Information Value Date Recorded Sex Assigned at Not on file Legal Sex Male 8:06 PM CDT Gender Identity Not on file Sexual Orientation Not on file Last Filed Vital Signs Vital Sign Reading Time Taken Comments Blood Pressure 144/92 10/29/2015 1:48 PM CDT Pulse 53 10/29/2015 1:48 PM CDT Temperature - - Respiratory Rate - - Oxygen Saturation - - Inhaled Oxygen Concentration - - Weight 66.7 kg (147 lb) 10/29/2015 1:48 PM CDT Height 170.2 cm (5' 7) 10/29/2015 1:48 PM CDT Body Mass Index 23.02 10/29/2015 1:48 PM CDT Plan of Treatment Health Maintenance Due Date Last Done Comments Annual Physical 05/27/1987 Hepatitis C 2002 DTaP, Tdap and Td Vaccines ( 1 - Tdap) 05/27/2003 Hepatitis B Vaccines (1 of 3 - 19+ 3-dose series) 05/27/2003 COVID-19 Vaccine (2023-2 5 season) 2023 HPV Vaccines Aged Out No longer eligi ble based on patient's age to complete this topic Meningococcal B Vaccine Aged Out No l onger eligible based on patient's age to complete this topic Meningococcal Vaccine Aged Out No shruthi asher eligible based on patient's age to complete this topic Pneumococcal Vaccine: Pediat rics (0 to 5 Years) and At-Risk Patients (6 to 49 Years) Aged Out No longer eligible b ased on patient's age to complete this topic RSV Immunizations Under 20 Months Aged Out No longer eligible based on patient's age to complete this topic Care Teams Regional Tanker Truck Driver Relationship Specialty Start Date End Date Gautam Fernandez MD PCP - General 10/29/15
[2024-08-17 22:38] VITALS: BP 152/112; PULSE 86; RESP 15; TEMP 36.8; O2SAT 99
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
--- OUTSIDE RECORDS SUMMARY | 2024-08-18 03:25 | XMS_ITS | Clinical Summary ---
Author Organization [facility] Address [address] [place] [id number] Care Team Providers Care Power Line Installer Name Role Phone Gautam Fernandez MD Primary [...] age to complete this topic Care Teams Power Line Installer Relationship Specialty Start Date End Date Gautam Fernandez MD PCP - General 10/29/15
[2024-08-18 03:40] VITALS: BP 160/100; PULSE 60; RESP 18; TEMP 36.8; O2SAT 96
[2024-08-18] MEDS: KETOROLAC 30 MG/ML VIAL (*BKC) IM (03:45)
[2024-08-18 04:03] VITALS: BP 158/100; PULSE 72; RESP 18; TEMP 36.8; O2SAT 98
== END 2024-08-18 03:59 | disposition home or self-care (01) ==
LOC: ANHED 08-18 03:24
PROVIDERS: Emergency Provider Student in an Organized Health Care Education/Training Program; PCP Family Medicine
DX: S80.02XA Contusion of left knee, initial encounter (principal); S76.112A Strain of left quadriceps muscle, fascia and tendon, initial encounter; J45.909 Unspecified asthma, uncomplicated; V86.56XA Driver of dirt bike or motor/cross bike injured in nontraffic accident, initial encounter
CPT/HCPCS: 73564; 96372; 99283; J1885

== ENCOUNTER 2024-08-31 08:14 | Outpatient (CLI) | payer BC, SELFPAY ==
--- NOTE | ~2024-08-31 | MR_ITS ---
MRI of the left knee Clinical history: Pain Technique: Coronal proton density and proton density-weighted images, sagittal proton-density and T2 fat-sat images, and axial proton-density fat-saturated images were acquired. Findings: Anterior and posterior cruciate ligaments are intact. Medial collateral ligament and the la teral collateral ligament complex are intact. Popliteus tendon is intact. Medial and lateral menisci are intact, without evidence of tear. Articular cartilage is well preserved throughout the knee. Bone marrow signals are unremarkable. Extensor mechanism is intact. There is a large, somewhat crescentic fluid collection in the prepatell ar subcutaneous soft tissues measuring up to approximately 6.2 x 1.3 x 10.5 cm in extent. No joint ef fusion. No Culp's cyst. There is mild diffuse subcutaneous soft tissue edema. Impression: Large crescentic fluid collection in the prepatellar subcutaneous soft tissues. This could reflect he matoma or other posttraumatic change. Consider possibility of Wei-Dorie lesion. Reviewed, dictated and finalized at [facility]. Impression: Large crescentic fluid collection in the prepatellar subcutaneous soft tissues. This could reflect hematoma or other posttraumatic change. Consider possibilit y of Wei-Dorie lesion.
== END 2024-08-31 08:15 | disposition home or self-care (01) ==
LOC: GOSHIMG 08:14
PROVIDERS: PCP Orthopaedic Surgery; Visit Provider Family Medicine
DX: M25.562 Pain in left knee (principal); M25.462 Effusion, left knee; V86.56XA Driver of dirt bike or motor/cross bike injured in nontraffic accident, initial encounter
CPT/HCPCS: 73721

== ENCOUNTER 2025-01-24 14:59 | Emergency (ER) | payer BC, SELFPAY ==
--- NOTE | 2025-01-24 15:08 | ED_ITS ---
HPI - General Adult General Chief complaint: Upper Respiratory Infection Stated complaint: Sore Throat Source: patient Mode of arrival: ambulatory Limitations: no limitations History of Present Illness HPI narrative: Pt is a 39 y/o male presenting with c/o head congestion, sore throat x 2 days. Denies any known exposure to COVID, FLU, STREP, PNA. States his grandfather has an upcoming 90th birthday and he wants to make sure he isnt contagious. 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 No additional complaints. Related Data Allergies Allergy/AdvReac Type Severity Reaction Status Date / Time No Known Allergies Allergy Unknown Verified 01/24/25 15:32 Review of Systems Review of Systems: CONSTITUTIONAL: Denies body aches, fever, chills, or sweats. EYES: Denies visual changes, redness, or discharge. ENT: reports congestion, sore throat, denies rhinorrhea or otalgia. CARDIOVASCULAR: Denies chest pain, palpitations, or edema. RESPIRATORY: Denies cough or dyspnea. GASTROINTESTINAL: Denies abdominal pain, nausea, vomiting, or diarrhea. GENITOURINARY: Denies dysuria or hematuria. SKIN: Denies rash, itching, or wounds. MUSCULOSKELETAL: Denies back pain, joint pain, or myalgia. NEUROLOGIC: Denies headache, numbness, tingling, or weakness. PSYCH: Denies depression or anxiety. All systems reviewed & are unremarkable except as noted in HPI and below PMFSH Past Medical History Medical History PSVT (paroxysmal supraventricular tachycardia) GI bleed Asthma Surgical History Surgical History History of placement of ear tubes Family History Family History Mother Family history of migraine headaches Father Cerebrovascular accident Hypertension Alcoholism Social History Social History (Updated 10/17/24 @ 07:30 by Dinorah Meyer CMA) Smoking status: Never smoker Second hand tobacco smoke exposure: No Alcohol intake: current Substance use: unknown Lack of Transportation: No Lack of Food: Never True Current Housing: I Have Housing Concerned About Future Housing: No Difficulty Paying Gas/Electric Bills: No Difficulty Paying for Meds: No Currently Unemployed: No Education: Trade/Vocational Certificate Difficulty w/ Childcare or Family Care: No Exam Narrative: GENERAL: Well-appearing, well-nourished, and in no acute distress. HEAD: Normocephalic, atraumatic. EYES: EOMI. No redness or drainage. Conjunctivae normal. ENT: Mucous membranes pink and moist. Nares clear. No rhinorrhea. TMs normal bilaterally. Throat normal. Uvula midline.voice is normal. Sinuses nontender. NECK: Normal AROM. Supple. No lymphadenopathy. CHEST: No respiratory distress. Clear to auscultation. HEART: Regular rate and rhythm. No murmur appreciated. Normal peripheral pulses. SKIN: Warm, dry, no rash. Capillary refill normal. Normal skin turgor. NEURO: No focal deficits. Alert and oriented x3. Gait steady. PSYCH: Normal affect. No signs of depression or anxiety. Course Course Level of Care: Express Care Visit Vital Signs Vital signs: Vital Signs Temperature 96.7 F L 01/24/25 15:13 Pulse Rate 65 01/24/25 15:13 Respiratory Rate 18 01/24/25 15:13 Blood Pressure 159/105 H 01/24/25 15:13 Pulse Oximetry 100 01/24/25 15:13 Oxygen Delivery Room Air 01/24/25 15:13 Temperature 96.7 F L 01/24/25 15:13 Pulse Rate 65 01/24/25 15:13 Respiratory Rate 18 01/24/25 15:13 Blood Pressure 159/105 H 01/24/25 15:13 Pulse Oximetry 100 01/24/25 15:13 Oxygen Delivery Room Air 01/24/25 15:13 [facility] MDM Narrative Medical decision making narrative: Discussed elevated blood pressure readings with patient and advised daily BP monitoring and f/u with PCP if persisting. Differential Diagnosis Differential Diagnosis: COVID, flu, strep, unspecified viral URI Lab Data Labs: Lab Results 01/24/25 01/24/25 Range/Units 15:11 15:31 POC Influenza A Ag Negative Negative (Negative) POC Influenza B Ag Negative Negative (Negative) POC SARS CoV-2 Ag Negative Negative (Negative) POC Grp A Strep Screen Negative Negative (Negative) Discharge Plan Discharge Clinical Impression: Upper respiratory infection Hypertension Qualifiers: Hypertension type: primary hypertension Qualified Code(s): I10 - Essential (p rimary) hypertension Patient Disposition: Home Condition: Stable Instructions: Antibiotic Form, Upper Respiratory Infection (ED) Additional Instructions: Go straight to ER should your symptoms become worse or should any new symptoms develop Patient Language: Mosotho Prescriptions: No Action metoprolol succinate 25 mg tablet extended release 24 hr See Rx Instructions .ROUTE .COMPLEX Qty: 90 2RF Dose Instruction: TAKE 1 TABLET BY MOUTH EVERY DAY Rx Instructions: TAKE 1/2 TABLET BY MOUTH EVERY DAY Follow-up/Referrals: Annmarie Colby DO [Primary Care Provider, Family Practice] - 01/25/25 Time of Disposition: 15:30
[2025-01-24 15:13] VITALS: BP 159/105; PULSE 65; RESP 18; TEMP 35.9; O2SAT 100
[2025-01-24 15:32] LABS: EDSTREPNEGPOS1 Negative (Negative)
[2025-01-24 15:33] LABS: EDCOVIDSCREEN Negative (Negative); EDINFLUASCREEN Negative (Negative); EDINFLUBSCREEN Negative (Negative)
[2025-01-24 15:33] LABS: EDCOVIDSCREEN Negative (Negative); EDINFLUASCREEN Negative (Negative); EDINFLUBSCREEN Negative (Negative); EDSTREPNEGPOS1 Negative (Negative)
== END 2025-01-24 15:39 | disposition home or self-care (01) ==
PROVIDERS: Emergency Provider Registered Nurse; PCP Family Medicine
DX: J06.9 Acute upper respiratory infection, unspecified (principal); I10 Essential (primary) hypertension; Z20.822 Contact with and (suspected) exposure to COVID-19; J45.909 Unspecified asthma, uncomplicated
CPT/HCPCS: 87081; 87426; 87804; 87880; 99213; G0463